=== PATIENT | female | born 1990 | race Caucasian/White ===

== ENCOUNTER 2022-05-07 20:01 | Inpatient (IN) ==
[2022-05-07] MEDS ORDERED: OXYTOCIN 30 UNITS/500 ML BAG IV PRN ×2 (20:40→20:45)
[2022-05-07] MEDS ORDERED: LIDOCAINE 1% LOCAL 20 ML VIAL INFIL PRN (20:40)
--- NOTE | 2022-05-07 20:58 | History & Physical Report ---
Date of Service May 07, 2022 Assessment & Plan (1) Supervision of normal intrauterine in primigravida: Plan: primip with grossly ruptured membranes for clear fluid and early labor GBS- negative would like to ambulate for now pitocin augmentation if regular contractions do not begin by midnight epidural analgesia if requested anticipate vaginal History of Present Illness Primary Care Provider: NO PCP Patient is a31 yo female EDC [birth year]/29[birth year] who presents at 36 3/7 weeks with SPROM of copious clear fluid at 1830 today. only mild contractions so far. baby active. uncomplicated. GBS - negative Blood type 0 positive. Allergies Allergy/AdvReac Type Severity Reaction Status Date / Time amoxicillin Allergy Rash Verified 05/02/22 15:11 clarithromycin [From Biaxin] Allergy rash Verified 05/02/22 15:11 erythromycin base Allergy Rash Verified 05/02/22 15:11 [From Erythrocin] sulfamethoxazole Allergy Rash Verified 05/02/22 15:11 [From Bactrim] trimethoprim [From Bactrim] Allergy Rash Verified 05/02/22 15:11 Home Medications Medication Instructions Recorded Confirmed Type prenat.vits,ofe,wwt-psrp-btvfk 1 tab PO DAILY 10/13/21 05/02/22 History Patient History Surgical History History of removal of skin mole S/P LEEP of cervix S/P tonsillectomy Family History (Updated 10/13/21 @ 08:50 by Edie Dowling) Mother Myocardial infarction Grandfather (Maternal) Congestive heart failure (CHF) Grandmother (Paternal) Congestive heart failure (CHF) Other No significant family history Denies family history of Colon cancer Ovarian cancer Prostate cancer Breast cancer Social History (Updated 10/13/21 @ 08:51 by Edie Dowling) Smoking Status: Never smoker Second Hand Exposure: Yes; Hx Alcohol Use: No Hx Substance Use: No Visual Impairment: No Limitations Hearing Ability: Normal marital status: Single marital status details: Abdirizak (35) [phone] Current Living Situation: Significant Other Current Living Situation Comment: lives with fob current occupational status: employed current occupation: Self employed (massage therapist) Dental Care, Regularly: Yes Physical Activity Frequency: 1-2 Times per Week Review of Systems All systems reviewed & are unremarkable except as noted in HPI & below Physical Exam Constitutional: WD/WN, vitals as above Psychiatric: A+Ox3, euthymic affect Genitourinary: OB Exam Abdomen: + vertex, + estimated weight (6-7 pounds) and + irregular contractions (mild) Manual OB Exam: + cervical dilation 3 cm, + cervical effacement 80% and + station -1 OB Exam Monitor Tracing: + external FHT monitor used, + external uterine monitor used, + category I and + normal FHT variability Results & Data ([facility]) Vital Signs (Past 12 Hours) Vital Signs Temp Pulse Resp BP 05/07/22 20:11 18 05/07/22 20:11 98.4 F 18 05/07/22 20:14 84 134/84 Code Status & VTE Plan VTE Prophylaxis Plan VTE Prophylaxis will be ordered: No Coding Level of Care Code None Diagnoses Supervision of normal intrauterine in primigravida Z34.00
[2022-05-07 21:48] LABS: Basophils # (auto) 0.04 K/uL (0-0.2); Basophils % (auto) 0.3 %; Eosinophils # (auto) 0.06 K/uL (0-0.50); Eosinophils % (auto) 0.4 %; Hemoglobin 12.7 g/dl (12.0-16.0); Immature Granulocytes # (auto) 0.17 K/uL (0.00-0.02); Immature Granulocytes % (auto) 1.3 %; Lymphocytes # (auto) 3.31 K/uL (1.2-3.4); Lymphocytes % (auto) 24.7 %; Mean Corpuscular Hemoglobin 29.3 pg (25.0-34.0); Mean Corpuscular Hgb Conc 33.4 g/dL (32.0-36.0); Mean Corpuscular Volume 87.8 fL (80.0-100.0); Mean Platelet Volume 11.6 fL (9.4-12.3); Monocytes # (auto) 1.01 K/uL (0.24-0.82); Monocytes % (auto) 7.5 %; Neutrophils # (auto) 8.81 K/uL (1.4-6.5); Neutrophils % (auto) 65.8 %; Platelet Count 234 K/uL (130-400); RDW Coefficient of Variation 13.7 % (11.5-14.5); RDW Standard Deviation 43.4 fL (36.4-46.3); Red Blood Count 4.33 M/uL (3.93-5.22)
[2022-05-08] MEDS: LACTATED RINGER'S 1,000 ML IV PRN ×2 (00:14→07:03)
[2022-05-08] MEDS ORDERED: ePHEDrine sulfate 50 MG/ML AMP ONE (06:17)
[2022-05-08] MEDS ORDERED: fentaNYL citrate 100 MCG/2 ML VIAL ONE (06:17)
[2022-05-08] MEDS ORDERED: SODIUM CHLORIDE 0.9% INJ 10 ML VIAL ONE (06:17)
[2022-05-08] MEDS ORDERED: LIDOCAINE 2%/EPINEPHRINE 1:200,000 20 ML SDV ONE (06:18)
[2022-05-08] MEDS ORDERED: BUPIVACAINE 0.25% 30 ML VIAL ONE (06:18)
[2022-05-08] MEDS ORDERED: fentaNYL 2MCG/ML ROPIVACAINE 1.25MG/ML 100 ML BAG EPI ONE (06:18)
[2022-05-08] MEDS ORDERED: ePHEDrine sulfate 50 MG/ML AMP IV PRN (06:33)
[2022-05-08] MEDS ORDERED: NALBUPHINE HCL INJ 10 MG/ML AMP IV PRN (06:33)
[2022-05-08] MEDS ORDERED: NALOXONE HCL 1 MG in SODIUM CHLORIDE 0.9% 1000ML 1,000 ML IV PRN (06:33)
[2022-05-08] MEDS ORDERED: diphenhydrAMINE 50 MG/ML VIAL IV PRN (06:33)
[2022-05-08] MEDS ORDERED: NALOXONE HCL 0.4 MG/1 ML VIAL/CARP IV PRN (06:33)
[2022-05-08] MEDS ORDERED: fentaNYL 2MCG/ML ROPIVACAINE 1.25MG/ML 100 ML BAG EPI PRN (06:33)
--- NOTE | 2022-05-08 06:33 | Anesthesiology Consultation ---
Date of Service May 08, 2022 Assessment & Plan (1) Encounter for pre-operative examination: Chart Review Chart Review: Acceptable Risk for Surgery and Patient NOT seen in Pre Admission Testing Consults Requested none History Height/Weight Height: 5 ft 5 in Weight: 92.986 kg Allergies Allergy/AdvReac Type Severity Reaction Status Date / Time amoxicillin Allergy Rash Verified 05/02/22 15:11 clarithromycin [From Biaxin] Allergy rash Verified 05/02/22 15:11 erythromycin base Allergy Rash Verified 05/02/22 15:11 [From Erythrocin] sulfamethoxazole Allergy Rash Verified 05/02/22 15:11 [From Bactrim] trimethoprim [From Bactrim] Allergy Rash Verified 05/02/22 15:11 Medications Home Medications Medication Instructions Recorded Confirmed Last Taken prenat.vits,ofe,orb-cmrx-xaqij 1 tab PO DAILY 10/13/21 05/08/22 05/07/22 08:00 Active Medications Generic Name Dose Route Start Last Admin Trade Name Freq PRN Reason Stop Dose Admin Oxytocin 30 units in 500 mls @ 7 mls/hr 05/07/22 20:45 05/08/22 05:30 Pitocin IV 05/09/22 20:44 0.42 units/hr .Q24H PRN 7 mls/hr Labor Induction/Augmentation Titration Protocol 0.42 UNITS/HR Lactated Ringer's 1,000 mls @ 125 mls/hr 05/07/22 20:40 05/08/22 00:14 Lr IV 05/09/22 20:39 125 mls/hr .Q8H PRN Administration L&D Protocol Protocol Past Family History Family History Mother Myocardial infarction Grandfather (Maternal) Congestive heart failure (CHF) Grandmother (Paternal) Congestive heart failure (CHF) Other No significant family history Denies family history of Colon cancer Ovarian cancer Prostate cancer Breast cancer Past Surgical History Surgical History History of removal of skin mole S/P LEEP of cervix S/P tonsillectomy Social History Smoking Status: Never smoker Do You Dip or Chew Tobacco: No Hx Alcohol Use: No Hx Substance Use: No substance use type: does not use Physical Exam Vital Signs Last Vital Signs Temp 98.1 F 05/08/22 05:30 Pulse 76 05/08/22 06:27 Resp 18 05/08/22 05:30 BP 130/84 05/08/22 06:27 Testing Laboratory Results 05/07/22 21:05
--- NOTE | 2022-05-08 10:45 | Delivery Summary ---
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 Fluid was clear no nuchal cord mouth and then nares suctioned with bulb gentle traction of the baby no excessive force live vigorous female cord clamped and cut cord blood obtained placenta removed with gentle traction IV Pitocin started uterine tone improved second-degree tear repaired with 3-0 Vicryl sponge and instrument counts correct estimated blood loss 250 mL
[2022-05-08] MEDS ORDERED: HYDROCORTISONE ACETATE 25 MG SUPP PR PRN (10:53)
[2022-05-08] MEDS ORDERED: oxyCODONE/ACETAMINOPHEN 5mg/325mg TAB PO PRN (10:53)
[2022-05-08] MEDS ORDERED: bisacodyL 10 MG SUPP PR PRN (10:53)
[2022-05-08] MEDS ORDERED: BENZOCAINE 20% AER SPR 82.5 GM CAN EXT PRN (10:53)
[2022-05-08] MEDS ORDERED: DIPHTHERIA/TETANUS/PERTUSSIS 0.5 ML SYR/VIAL IM ONE (10:53)
[2022-05-08] MEDS ORDERED: OXYTOCIN 30 UNITS/500 ML BAG IV PRN (10:53)
[2022-05-08] MEDS ORDERED: ACETAMINOPHEN 325 MG TAB PO PRN (10:53)
--- NOTE | 2022-05-08 13:57 | Anesthesia Procedure Note ---
Date of Service May 08, 2022 Anesthesia Post Epidural Note Vital Signs Vital Signs: Temp Pulse Resp BP Pulse Ox O2 Del Method 36.3 C L 80 18 124/76 97 05/08/22 13:00 05/08/22 13:00 05/08/22 13:00 05/08/22 13:00 05/08/22 10:27 05/08/22 13:00 Pain Intensity Bilateral Lower Abdomen: Pain Intensity: 0 Notes Mental Status: alert / awake / arousable Nausea / Vomiting: adequately controlled Pain: adequately controlled Airway Patency, RR, SpO2: stable & adequate BP & HR: stable & adequate Hydration State: stable & adequate Neuraxial Anesthesia: was administered and sensory block is resolving Anesthetic Complications: no major complications apparent and Pt Satisfied with anesthetic care Epidural: Removed without complications and With tip intact
[2022-05-08] MEDS: IBUPROFEN 600 MG TAB PO PRN ×2 (15:46→21:24)
[2022-05-08] MEDS: DOCUSATE SODIUM 100 MG CAP PO SCH (21:24)
[2022-05-09 06:14] LABS: Hematocrit (blood only) 34.9 % (34.1-44.9); Hemoglobin 11.3 g/dl (12.0-16.0); Mean Corpuscular Hgb Conc 32.4 g/dL (32.0-36.0); Mean Corpuscular Volume 89.5 fL (80.0-100.0); Mean Platelet Volume 11.4 fL (9.4-12.3); Platelet Count 199 K/uL (130-400); RDW Coefficient of Variation 14.2 % (11.5-14.5); RDW Standard Deviation 45.6 fL (36.4-46.3); White Blood Count 15.18 K/ul (4.8-10.8)
--- NOTE | 2022-05-09 06:47 | Obstetrical Progress Note ---
Date of Service <Domitila George MD - Last Filed: 05/09/22 07:34> May 09, 2022 Assessment & Plan <Domitila George MD - Last Filed: 05/09/22 07:34> (1) Encounter for care and examination after delivery: PPD1 satisfactory progress. encourage ambulation follow up in 6 weeks <Richi Jensen MD, FACOG - Last Filed: 05/09/22 07:37> (1) Encounter for care and examination after delivery: Subjective <Domitila George MD - Last Filed: 05/09/22 07:34> Ambulation: ambulating normally Voiding: no voiding problems Passing Gas:: Yes Diet Tolerance:: regular diet Lochia:: Small Feeding Type:: breast feeding Physical Exam <Domitila George MD - Last Filed: 05/09/22 07:34> Constitutional WD/WN, vitals as above no acute distress Respiratory normal respiratory effort; no respiratory distress Auscultation: lungs clear to auscultation bilaterally Cardiovascular Rate/Rhythm: regular rate and regular rhythm Heart Sounds: no murmur Extremities: no calf tenderness Psychiatric A+Ox3, euthymic affect Orientation: alert and oriented x 3 Results & Data ([facility]) <Domitila George MD - Last Filed: 05/09/22 07:34> Vital Signs (Past 12 Hours) Vital Signs Temp Pulse Resp BP O2 Del Method 05/09/22 03:00 37.1 C 73 16 108/72 Room Air 05/08/22 23:00 37.1 C 79 16 122/77 Room Air 05/08/22 20:00 37.2 C 111 H 16 121/79 Room Air <Richi Jensen MD, FACOG - Last Filed: 05/09/22 07:37> Co-Signing Physician Notes Resident Physician Supervision Note: I was present with [Name of resident] during the history and exam. I discussed the case with the resident and agree with the findings and plan as documented in the note. Any exceptions or clarifications are listed here: [None] Documented By: Richi Jensen MD, FACOG Resident Activity Tracking <Domitila George MD - Last Filed: 05/09/22 07:34> Resident Involvement: Resident Care Provided Care Provided: Adult Hospital Medicine
[2022-05-09] MEDS ORDERED: PRENATAL VITAMIN 1 TAB PO SCH (08:00)
[2022-05-09] MEDS: DOCUSATE SODIUM 100 MG CAP PO SCH (08:14)
[2022-05-09] MEDS: IBUPROFEN 600 MG TAB PO PRN (15:01)
[2022-05-09] MEDS ORDERED: bisacodyL 5 MG TABEC PO SCH (20:00)
== END 2022-05-09 16:00 | disposition home or self-care (01) | DRG 807 ==
LOC: OPB 20:01 → 4S1 20:02 → 4E2 05-08 13:05